=== PATIENT | female | born 1975 | race Caucasian/White ===

== ENCOUNTER 2016-08-27 09:52 | Outpatient (CLI) | payer OTHER ==
--- NOTE | 2016-08-28 09:32 | Mammography Report ---
DIGITAL BILATERAL SCREENING MAMMOGRAM: 08/27/2016 CLINICAL HISTORY: A 41-year-old female in for routine screening mammogram. Patient has a family his tory of breast cancer. A maternal aunt possibly had breast cancer. Patient has had no prior breast surgeries. COMPARISON: 08/20/2013 TECHNIQUE: Craniocaudad and oblique lateral views of each breast were obtained with [employer] digital mammography. Axillary exaggerated craniocaudad view of the right breast was done to compl iment the exam. FINDINGS: Heterogeneously dense breasts are noted bilaterally. No significant clusters of calcifica tion are seen. No significant masses are noted. No change is seen. IMPRESSION: BREASTS APPEAR RADIOGRAPHICALLY BENIGN. BIRADS CATEGORY 1 - NEGATIVE. RECOMMENDATIONS: Annual bilateral screening mammography. STANDARD QUALIFYING STATEMENTS 1. This examination was reviewed with the aid of Computer-Aided Detection (CAD). 2. A negative or benign imaging report should not delay biopsy if clinically suspicious findings are present. Consider surgical consultation if warranted. More than 5% of cancers are not identified by i maging. 3. Dense breasts may obscure an underlying neoplasm. JOB #: [id number] EXT JOB #:[id number]
== END 2016-08-27 09:53 | disposition home or self-care (01) ==
LOC: DI 09:52
PROVIDERS: ATTEND Family Medicine
DX: Z12.31 Encounter for screening mammogram for malignant neoplasm of breast (principal)
CPT/HCPCS: 77067